=== PATIENT | female | born 1975 | race Caucasian/White ===

== ENCOUNTER → 2017-09-19 | Outpatient (CLI) | payer OTHER | LOC: FIMAGING 10:17 | PROVIDERS: ATTEND Midwife | DX: N83.202 Unspecified ovarian cyst, left side (principal) ==

== ENCOUNTER → 2018-02-26 | Outpatient (CLI) | payer OTHER ==
[~2018-02-26] MED LIST: IOPAMIDOL (ISOVUE 370) 100 ML BTL IV ONE
== END ==
LOC: FIMAGING 12:43
PROVIDERS: ATTEND Obstetrics & Gynecology
DX: N97.9 Female infertility, unspecified (principal)
CPT/HCPCS: Q9967

== ENCOUNTER 2018-06-28 15:27 | Emergency (ER) | payer OTHER ==
--- NOTE | 2018-06-28 16:45 | CPEKG ---
Test Reason : OPEN Blood Pressure : / mmHG Vent. Rate : 068 BPM Atrial Rate : 070 BPM P-R Int : 167 ms QRS Dur : 072 ms QT Int : 409 ms P-R-T Axes : 052 055 052 degrees QTc Int : 436 ms Sinus rhythm Confirmed by Aidan Carrero ([id number]) on 06/28/2018 4:44:49 PM Referred By: Confirmed By:Aidan Carrero
--- NOTE | 2018-06-28 17:25 | EDPHY ---
General - Diagnostics Imaging: I viewed and interpreted images myself - History History Review: I reviewed the patient's medical records Smoking Status: Never smoked Time Seen by Provider: 06/28/18 17:13 Narrative: CHIEF COMPLAINT: Chest pain HISTORY OF PRESENT ILLNESS: Patient presents by private vehicle with complaints of chest pain and "I think it's my hormones." She states the chest pain started approximately 6 weeks ago. Pain comes and goes. She says that she cannot predict when normal, how long well last. It is described as a pressure, retrosternal when it does happen. There is no exertional component. She says it radiates to her feet but not her head, neck, arm. She describes it as mild tomorrow by happens. At 3:30 a.m. It was very severe for her until 5:00 a.m. She has no diaphoresis with this. She has no shortness of breath. She does have some pressure type pain with this at times. No abdominal pain. No nausea. She has not ever had a workup for this, but it also occurred back in 2013 as well and resolved spontaneously. She thinks it may be related to multiple medication she is taking to regulate her hypothyroidism and her parathyroid nodule. She denies any erythema, edema or pain of the extremities. No recent travel, trauma or surgery. No history of venous thrombolic event. No known coronary artery disease. No family history of coronary artery disease or sudden cardiac . No syncope. She states that she is pain-free over the past hour. No other associated complaints or modifying factors REVIEW OF SYSTEMS: 10 systems were reviewed and negative with the exception of the elements mentioned in the history of present illness. PCP: Pending appointment with Dr. Melendrez SPECIALISTS: OB, Dr. Payton Endocrine, Dr. Ariza PAST MEDICAL HISTORY: Hypothyroidism, Asif's, pituitary nodule PAST SURGICAL HISTORY: No surgical history SOCIAL HISTORY: Quit smoking 3 years ago. Denies alcohol or drug use. Works multiple jobs. Lives independently with her spouse. Attempting to become . FAMILY HISTORY: Noncontributory. No coronary artery disease in mother, father grandparents. There is positive CVA history in these family members. EXAMINATION: Vitals: Triage VS reviewed General Appearance: Alert, no distress. Well appearing. Normal conversation. Head: normocephalic, atraumatic Eyes: Pupils equal and round, no conjunctival pallor or injection ENT, Mouth: Mucous membranes moist Neck: Normal inspection, supple, non-tender Respiratory: Lungs are clear to auscultation Cardiovascular: Regular rate and rhythm. No murmur. Good signs of perfusion with symmetric radial pulses 2+. Gastrointestinal: Abdomen is soft and nontender Back: non-tender, no bony abnormalities Neurological: A&O, nonfocal, normal gait Skin: Warm and dry, no rash Extremities: Nontender, no pedal edema Psychiatric: Slightly anxious affect. DIFFERENTIAL DIAGNOSES: Including but not limited to ACS, PE, pericarditis, reflux, anxiety reaction, dissection, aneurysm MDM: 5:15 p.m. Intermittent chest pain over the past 6 weeks. She is currently pain-free but did have significant pain early this morning that concerned her. Vital signs are within normal limits. She is perc negative. She has no history of diabetes , hypertension, dyslipidemia. EKG is unremarkable normal sinus rhythm no ischemia. Vital signs are within normal limits with no SIRS. She is well- appearing. She does appear to be anxious. I have ordered laboratory studies including troponin appears to be placed on a electronic device monitor. She is in no acute distress. [place] heart score: 0 with a pending troponin 5:55 p.m. Point of care troponin negative. X-ray negative per Radiology. Remainder of her labs are still pending. 6:20 p.m. Remainder of laboratory studies are within normal limits including negative HCG. I have re-evaluated the patient. She continues to states that she has no pain. No shortness of breath. We discussed the shared decision pathway for chest pain including observation with further test, discharged home versus admission to the hospital. Patient states that she would like to be discharged home and is feeling well. She has no pain would like to go home. I do feel this is reasonable that she has full capability of making this decision. We did discuss risks, benefits alternatives. We discussed close follow-up with Cardiology early next week. We discussed ED precautions for any return of her pain, exertional pain, shortness of breath, sweating, nausea. She is comfortable this plan. She is discharged home stable condition. EKG interpretation: Dr. Petit SUPERVISION: Patient was independently examined, but I discussed the case with my secondary supervising physician Dr. Petit CONSULTATION: None. Cardiology referral (Jeromy Fine) Medical Decision Making: PHYSICIAN DOCUMENTATION: The patient was evaluated and managed by the Physician [employer] Development Advisor. My co- signature indicates that I have reviewed this chart and I agree with the findings and plan of care as documented. I am the secondary supervising physician. (Nick Petit) - Diagnostics EKG Interpretation: EKG: Complete interpretation has been separately recorded in the [facility] archive. Summary impression: Sinus rhythm, rate 61 (Nick Petit) Imaging Results: Imaging Impressions Chest X-Ray 06/28/18 17:26 Impression: Query mild airways disease. No pneumonia or other source for chest pain identified. - Objective Vital Signs: Initial Vital Signs Temperature (C) 98.4 F 06/28/18 15:34 Heart Rate 75 06/28/18 15:34 Respiratory Rate 16 06/28/18 15:34 Blood Pressure 115/60 06/28/18 15:34 O2 Sat (%) 98 06/28/18 15:34 O2 Delivery Mode Room Air Allergies/Adverse Reactions: No Known Allergies Allergy (Unverified 06/28/18 15:32) Home Medications: Medication Instructions Recorded Acidophilus 06/28/18 Cabergoline 06/28/18 Calcium 1,000 + D3 Caplet 06/28/18 Levothyroxine 06/28/18 Rylie 06/28/18 Multivitamin (*) 06/28/18 Nac 06/28/18 Resveratrol 06/28/18 Saccharomyces Boulardii 06/28/18 Vitex 06/28/18 Zinc 06/28/18 Laboratory Results: Laboratory Results 06/28/18 17:25 06/28/18 17:25 06/28/18 06/28/18 06/28/18 17:38 17:25 17:25 WBC RBC Hgb Hct MCV MCH MCHC RDW Plt Count MPV Neut % (Auto) Lymph % (Auto) Warrick % (Auto) Eos % (Auto) Baso % (Auto) Nucleat RBC Rel Count Absolute Neuts (auto) Absolute Lymphs (auto) Absolute Monos (auto) Absolute Eos (auto) Absolute Basos (auto) Absolute Nucleated RBC Immature Gran % Immature Gran # Sodium 137 mEq/L mEq/L (135-145) Potassium 4.0 mEq/L mEq/L (3.3-5.0) Chloride 104 mEq/L mEq/L (97-110) Carbon Dioxide 26 mEq/l mEq/l (22-31) Anion Gap 7 mEq/L mEq/L (6-14) BUN 12 mg/dL mg/dL (7-23) Creatinine 0.7 mg/dL mg/dL (0.6-1.0) Estimated GFR > 60 Glucose 82 mg/dL mg/dL (70-100) Calcium 9.8 mg/dL mg/dL (8.5-10.4) POC Troponin I 0.00 ng/mL ng/mL (0.00-0.08) Lipase 114 IU/L IU/L (23-300) Beta HCG, Qual NEGATIVE 06/28/18 17:25 WBC 6.46 10^3/uL 10^3/uL (3.80-9.50) RBC 4.37 10^6/uL 10^6/uL (4.18-5.33) Hgb 13.9 g/dL g/dL (12.6-16.3) Hct 41.2 % % (38.0-47.0) MCV 94.3 fL fL (81.5-99.8) MCH 31.8 pg pg (27.9-34.1) MCHC 33.7 g/dL g/dL (32.4-36.7) RDW 12.4 % % (11.5-15.2) Plt Count 264 10^3/uL 10^3/uL (150-400) MPV 11.1 fL fL (8.7-11.7) Neut % (Auto) 54.9 % % (39.3-74.2) Lymph % (Auto) 34.8 % % (15.0-45.0) Warrick % (Auto) 5.7 % % (4.5-13.0) Eos % (Auto) 3.6 % % (0.6-7.6) Baso % (Auto) 0.8 % % (0.3-1.7) Nucleat RBC Rel Count 0.0 % % (0.0-0.2) Absolute Neuts (auto) 3.55 10^3/uL 10^3/uL (1.70-6.50) Absolute Lymphs (auto) 2.25 10^3/uL 10^3/uL (1.00-3.00) Absolute Monos (auto) 0.37 10^3/uL 10^3/uL (0.30-0.80) Absolute Eos (auto) 0.23 10^3/uL 10^3/uL (0.03-0.40) Absolute Basos (auto) 0.05 10^3/uL 10^3/uL (0.02-0.10) Absolute Nucleated RBC 0.00 10^3/uL 10^3/uL (0-0.01) Immature Gran % 0.2 % % (0.0-1.1) Immature Gran # 0.01 10^3/uL 10^3/uL (0.00-0.10) Sodium Potassium Chloride Carbon Dioxide Anion Gap BUN Creatinine Estimated GFR Glucose Calcium POC Troponin I Lipase Beta HCG, Qual Point of Care Test Results: Chemistry 06/28/18 17:38 POC Troponin I 0.00 ng/mL ng/mL (0.00-0.08) Departure - Departure Disposition: Home, Routine, Self-Care Clinical Impression: Chest pain Qualifiers: Chest pain type: unspecified Qualified Code(s): R07.9 - Chest pain, unspecified Condition: Good Instructions: Chest Pain (ED) Additional Instructions: 1. Contact provider contracting consultant as provided for outpatient care early next week. 2. Return to emergency department for any return of your pain, exertional pain, shortness of breath, sweating Referrals: Leslie Melendrez MD [Primary Care Provider] - As per Instructions Hubert Rios MD [Medical Doctor] - As per Instructions
[2018-06-28 18:07] LABS: PLATELET COUNT 264 10^3/uL (150-400)
[2018-06-28 18:37] VITALS: BP 97/59
== END 2018-06-28 18:39 | disposition home or self-care (01) ==
DX: R07.9 Chest pain, unspecified (principal); R91.1 Solitary pulmonary nodule; E03.9 Hypothyroidism, unspecified; E06.3 Autoimmune thyroiditis
CPT/HCPCS: 84484-PO